=== PATIENT | male | born 1970 | race Hispanic/Latino ===

== ENCOUNTER 2024-02-27 10:23 | Emergency (ER) | payer OTHER ==
[~2024-02-27] VITALS: Ht 190.5 cm; Wt 99.8 kg
[2024-02-27 10:25] VITALS: BP 113/78; PULSE 71; RESP 18
[2024-02-27] MEDS: KETOROLAC 15MG/ML VIAL (15MG/ML) IV STA (11:13)
[2024-02-27] MEDS: TETANUS/DIPHTHERIA TOXOID [ADULT] 0.5 ML VIAL IM ONE (11:21)
== END 2024-02-27 11:46 | disposition home or self-care (01) ==
LOC: EDH 10:23 → EDSEX 10:23 → EDH 11:46
DX: S00.05XA Superficial foreign body of scalp, initial encounter (principal); Z98.890 Other specified postprocedural states; W45.8XXA Other foreign body or object entering through skin, initial encounter; Y93.89 Activity, other specified; Y92.89 Other specified places as the place of occurrence of the external cause; Y99.8 Other external cause status
CPT/HCPCS: 99285; 10120; 96374; 90714; 90471; J1885; 96372